=== PATIENT | female | born 1960 | race Caucasian/White ===

== ENCOUNTER → 2016-07-18 | Outpatient (CLI) | payer MEDICAID | END | disposition home or self-care (01) | LOC: ROC 09:22 | PROVIDERS: ATTEND Radiology Radiation Oncology | DX: Z08 Encounter for follow-up examination after completed treatment for malignant neoplasm (principal); C11.9 Malignant neoplasm of nasopharynx, unspecified | CPT/HCPCS: 99212; G0463 ==

== ENCOUNTER → 2017-08-07 | Outpatient (CLI) | payer MEDICAID | END | disposition home or self-care (01) | LOC: ROC 07:48 | PROVIDERS: ATTEND Radiology Radiation Oncology | DX: C11.2 Malignant neoplasm of lateral wall of nasopharynx (principal) | CPT/HCPCS: 99213; G0463 ==

== ENCOUNTER → 2018-05-27 | Outpatient (CLI) | payer MEDICAID | END | disposition home or self-care (01) | LOC: CVU 15:06 | PROVIDERS: ATTEND Internal Medicine Cardiovascular Disease | DX: I65.23 Occlusion and stenosis of bilateral carotid arteries (principal); E78.5 Hyperlipidemia, unspecified; Z72.0 Tobacco use; Z85.818 Personal history of malignant neoplasm of other sites of lip, oral cavity, and pharynx | CPT/HCPCS: 93880 ==

== ENCOUNTER 2019-03-11 07:38 | Outpatient (CLI) | payer BC ==
[~2019-03-11 07:38] MED LIST: ASPI-515 PO; ATOR-2 PO; CIPR7.5D OT; CLOP75TA52 PO; LEVO75TA5 PO; OFLO5DRO4 OP
== END 2019-03-11 23:59 | disposition home or self-care (01) ==
LOC: CVU 07:38
PROVIDERS: ATTEND Internal Medicine Cardiovascular Disease
DX: I65.23 Occlusion and stenosis of bilateral carotid arteries (principal); Z98.890 Other specified postprocedural states
CPT/HCPCS: 93880